=== PATIENT | male | born 1965 | race Caucasian/White ===

== ENCOUNTER 2021-12-12 09:57 | Emergency (ER) | payer OTHER ==
[~2021-12-12] VITALS: Ht 182.9 cm; Wt 95.3 kg
[2021-12-12 10:01] VITALS: BP_SYST 166
--- NOTE | 2021-12-12 10:25 | NUR ---
Pt coming from home ambulatory with steady gait. Pt c/o upper back pain that radiates to chest that started an hour ago. Rates pain 6/10 intermittent. No sob and denies n/v. Connected pt to manpower development manager and VSS. A&Ox4. Skin intact. Pupils PERRLA. Cranial nerves intact. Bed in lowest position.
--- NOTE | 2021-12-12 10:28 | NUR ---
ER at bedside examining patient.
[2021-12-12] MEDS ORDERED: IBUPROFEN 600 MG TABLET PO ONE (10:30)
--- NOTE | 2021-12-12 10:30 | NUR ---
EKG performed at by Tania PARNELL. Physician given copy of EKG for review.
--- NOTE | 2021-12-12 10:33 | NUR ---
X-Ray being done at bedside
--- NOTE | 2021-12-12 10:35 | NUR ---
senior process control tech at bedside.
[2021-12-12 10:41] LABS: BASOPHILS % (AUTO) 0.6 % (0.0-2.0); EOSINOPHILS # (AUTO) 0.2 K/uL (0.0-0.4); EOSINOPHILS % (AUTO) 4.8 % (0.0-4.0); HEMATOCRIT 44.5 % (36-54); HEMOGLOBIN 15.6 g/dL (14.0-18.0); LYMPHOCYTES # (AUTO) 1.3 K/uL (1.0-5.5); LYMPHOCYTES % (AUTO) 26.9 % (20.5-51.5); MEAN CORPUSCULAR HEMOGLOBIN 30 pg (27-31); MEAN CORPUSCULAR HGB CONC 35 % (32-36); MEAN CORPUSCULAR VOLUME 85 fL (79.0-98.0); MONOCYTES # (AUTO) 0.5 K/uL (0.0-1.0); NEUTROPHILS # (AUTO) 2.6 K/uL (1.8-7.7); NEUTROPHILS % (AUTO) 56.7 % (40.0-70.0); PLATELET COUNT (AUTO) 150 K/uL (130-430); RED BLOOD CELL COUNT(AUTO) 5.26 MIL/uL (4.2-6.2); RED CELL DISTRIBUTION WIDTH 13.4 % (9.0-15.0); WHITE BLOOD COUNT (AUTO) 4.7 K/uL (4.8-10.8)
[2021-12-12] MEDS ORDERED: LORazepam 1 MG TABLET PO ONE (10:45)
[2021-12-12 10:46] LABS: ANION GAP 6 (5-15); CALCIUM 8.4 mg/dL (8.4-11.0); CHLORIDE 106 mmol/L (98-107); CREATININE 1.16 mg/dL (0.55-1.30); GLUCOSE 121 mg/dL (70-99); POTASSIUM 3.8 mmol/L (3.5-5.1); SODIUM SERUM 139 mmol/L (136-145); UREA NITROGEN, BLOOD 17 mg/dL (8-21)
[2021-12-12 10:48] LABS: GFR AFRICAN AMERICAN 84 mL/min (>90)
[2021-12-12 10:55] LABS: ALANINE AMINOTRANSFERASE 36 U/L (12-78); ALBUMIN 3.6 g/dL (3.4-4.8); ASPARTATE AMINOTRANSFERASE 23 U/L (10-37); TOTAL BILIRUBIN 0.4 mg/dL (0.0-1.0)
[2021-12-12] MEDS ORDERED: TRAM50TA PO (11:37)
[2021-12-12 11:53] VITALS: BP_SYST 145
--- NOTE | 2021-12-12 11:54 | NUR ---
Patient given written and verbal discharge instructions and verbalizes understanding. ER MD discussed with patient the results and treatment provided. Patient in stable condition. ID arm band removed. Rx of Tramadol given. Patient educated on pain management and to follow up with PMD. Pain Scale 0/10. Opportunity for questions provided and answered. Medication side effect fact sheet provided.
== END 2021-12-12 11:53 | disposition home or self-care (01) ==
LOC: SED 09:57
DX: S39.012A Strain of muscle, fascia and tendon of lower back, initial encounter (principal); R07.9 Chest pain, unspecified; F41.9 Anxiety disorder, unspecified; X58.XXXA Exposure to other specified factors, initial encounter; Y93.89 Activity, other specified; Y92.89 Other specified places as the place of occurrence of the external cause; Y99.8 Other external cause status
CPT/HCPCS: 36415; 71045; 80053; 83880; 84484; 85025; 93005; 99285

== ENCOUNTER 2022-03-02 13:04 | Emergency (ER) | payer OTHER ==
[~2022-03-02] VITALS: Ht 182.9 cm; Wt 95.3 kg
[~2022-03-02 13:04] MED LIST: TRAM50TA PO
[2022-03-02 13:31] VITALS: BP_SYST 163
--- NOTE | 2022-03-02 13:39 | NUR ---
DR. BROWN AT BEDSIDE TO ASSESS PT.
[2022-03-02] MEDS ORDERED: ONDANSETRON HCL 4 MG/2 ML VIAL IVP ONE (13:45)
[2022-03-02] MEDS ORDERED: MORPHINE 4 MG INJ. 4 MG/ML VIAL IVP ONE ×2 (13:45→14:45)
[2022-03-02 14:04] LABS: BASOPHILS % (AUTO) 0.4 % (0.0-2.0); EOSINOPHILS # (AUTO) 0.2 K/uL (0.0-0.4); EOSINOPHILS % (AUTO) 4.5 % (0.0-4.0); HEMATOCRIT 39.9 % (36-54); HEMOGLOBIN 13.9 g/dL (14.0-18.0); LYMPHOCYTES # (AUTO) 1.3 K/uL (1.0-5.5); LYMPHOCYTES % (AUTO) 25.9 % (20.5-51.5); MEAN CORPUSCULAR HEMOGLOBIN 30 pg (27-31); MEAN CORPUSCULAR HGB CONC 35 % (32-36); MEAN CORPUSCULAR VOLUME 85 fL (79.0-98.0); MONOCYTES # (AUTO) 0.5 K/uL (0.0-1.0); MONOCYTES % (AUTO) 10.6 % (1.7-9.3); NEUTROPHILS # (AUTO) 2.9 K/uL (1.8-7.7); NEUTROPHILS % (AUTO) 58.6 % (40.0-70.0); PLATELET COUNT (AUTO) 154 K/uL (130-430); RED BLOOD CELL COUNT(AUTO) 4.68 MIL/uL (4.2-6.2); RED CELL DISTRIBUTION WIDTH 14.1 % (9.0-15.0); WHITE BLOOD COUNT (AUTO) 4.9 K/uL (4.8-10.8)
--- NOTE | 2022-03-02 14:10 | NUR ---
PATIENT IV STARTED, PAIN IN LOWER RIGHT QUADRANT RADIATING TO BACK, SMALL AMOUNT OF BLOOD IN STOOL A FEW DAYS AGO BUT WENT AWAY. PATIENT WILL BE MEDICATED AT THIS TIME.
[2022-03-02 14:16] LABS: CALCIUM 8.7 mg/dL (8.4-11.0); CREATININE 1.28 mg/dL (0.55-1.30); POTASSIUM 4.5 mmol/L (3.5-5.1)
[2022-03-02 14:23] LABS: ALBUMIN 3.8 g/dL (3.4-4.8); TOTAL BILIRUBIN 0.3 mg/dL (0.0-1.0)
[2022-03-02 14:33] LABS: BILIRUBIN,URINE NEGATIVE (NEGATIVE); BLOOD, URINE NEGATIVE (NEGATIVE); CLARITY/URINE CLEAR (CLEAR); COLOR,URINE YELLOW (YELLOW); GLUCOSE,URINE NEGATIVE (NEGATIVE); KETONES,URINE NEGATIVE (NEGATIVE); LEUKOCYTE ESTERASE ,URINE NEGATIVE (NEGATIVE); NITRITE, URINE NEGATIVE (NEGATIVE); PH,URINE 5.5 (5.0-8.0); PROTEIN URINE NEGATIVE (NEGATIVE); UROBILINOGEN,URINE 0.2 (0.2-1.0)
[2022-03-02 14:49] VITALS: BP_SYST 167
[2022-03-02] MEDS ORDERED: ANURH RC (15:52)
== END 2022-03-02 16:09 | disposition home or self-care (01) ==
LOC: SED 13:04
DX: R10.32 Left lower quadrant pain (principal); K62.89 Other specified diseases of anus and rectum; I10 Essential (primary) hypertension; Z88.0 Allergy status to penicillin; Z88.6 Allergy status to analgesic agent; Z79.899 Other long term (current) drug therapy
CPT/HCPCS: 99285; 74177; 96374; 96375; 80053; 83690; 85025; 36415; 76376; 96376; 81003; J2405; J2270; Q9967

== ENCOUNTER 2023-02-03 05:14 | Inpatient (IN) | payer OTHER ==
[~2023-02-03] VITALS: Ht 182.9 cm; Wt 88.9 kg
[~2023-02-03 05:14] MED LIST changes: +ANURH RC
[2023-02-03 05:35] VITALS: BP_SYST 128; PULSE 109; RESP 18; TEMP 97.9; O2SAT 98
[2023-02-03] MEDS ORDERED: NACL 0.9% 1,000 ML IV ONE (05:45)
[2023-02-03] MEDS ORDERED: ONDANSETRON HCL 4 MG/2 ML VIAL IVP ONE (05:45)
[2023-02-03] MEDS ORDERED: MORPHINE 2 MG/ML INJ. SYRINGE IVP ONE (05:45)
[2023-02-03 06:52] LABS: BASOPHILS # (AUTO) 0.1 K/uL (0.0-0.2); BASOPHILS % (AUTO) 1.2 % (0.0-2.0); EOSINOPHILS # (AUTO) 0.2 K/uL (0.0-0.4); EOSINOPHILS % (AUTO) 2.1 % (0.0-4.0); HEMATOCRIT 56.6 % (36-54); HEMOGLOBIN 18.8 g/dL (14.0-18.0); LYMPHOCYTES # (AUTO) 1.3 K/uL (1.0-5.5); MEAN CORPUSCULAR HEMOGLOBIN 30 pg (27-31); MEAN CORPUSCULAR HGB CONC 33 % (32-36); MEAN CORPUSCULAR VOLUME 89 fL (79.0-98.0); MONOCYTES # (AUTO) 1.3 K/uL (0.0-1.0); MONOCYTES % (AUTO) 12.2 % (1.7-9.3); NEUTROPHILS # (AUTO) 7.9 K/uL (1.8-7.7); NEUTROPHILS % (AUTO) 72.5 % (40.0-70.0); PLATELET COUNT (AUTO) 262 K/uL (130-430); RED BLOOD CELL COUNT(AUTO) 6.37 MIL/uL (4.2-6.2); RED CELL DISTRIBUTION WIDTH 13.6 % (9.0-15.0); WHITE BLOOD COUNT (AUTO) 10.9 K/uL (4.8-10.8)
[2023-02-03 07:19] LABS: CALCIUM 9.1 mg/dL (8.4-11.0); CREATININE 2.82 mg/dL (0.55-1.30); POTASSIUM 4.1 mmol/L (3.5-5.1)
[2023-02-03 07:24] LABS: ALBUMIN 4.9 g/dL (3.4-4.8); TOTAL BILIRUBIN 0.7 mg/dL (0.0-1.0); TOTAL PROTEIN, SERUM 9.4 g/dL (6.4-8.3)
[2023-02-03] MEDS ORDERED: HYDROcodone/ACETAMIN 7.5-325 MG TAB PO ONE (09:15)
[2023-02-03] MEDS ORDERED: ONDANSETRON 4 MG ODT TAB PO ONE (09:15)
[2023-02-03 09:36] LABS: BLOOD, URINE NEGATIVE (NEGATIVE); GLUCOSE,URINE NEGATIVE (NEGATIVE); KETONES,URINE 1+ (NEGATIVE); LEUKOCYTE ESTERASE ,URINE NEGATIVE (NEGATIVE); NITRITE, URINE NEGATIVE (NEGATIVE); PROTEIN URINE 2+ (NEGATIVE); UROBILINOGEN,URINE 0.2 (0.2-1.0)
[2023-02-03] MEDS: NACL 0.9% 1,000 ML IV SCH ×2 (09:40→23:09)
[2023-02-03 09:42] LABS: CLARITY/URINE HAZY (CLEAR); COLOR,URINE YELLOW (YELLOW)
[2023-02-03 09:50] LABS: BILIRUBIN,URINE NEGATIVE (NEGATIVE)
[2023-02-03 10:03] LABS: BACTERIA,URINE FEW /HPF (None Seen); RBC,URINE NONE SEEN /HPF (0-3); WBC,URINE 0-3 /HPF (0-3)
[2023-02-03 10:04] LABS: MUCUS,URINE 2+ /LPF (None Seen)
[2023-02-03] MEDS ORDERED: PANTOPRAZOLE SODIUM 40 MG/VIAL (PROTONIX) IVP ONE (15:30)
[2023-02-03] MEDS: ONDANSETRON HCL 4 MG/2 ML VIAL IVP PRN ×2 (15:32→23:07)
[2023-02-03] MEDS ORDERED: NALOXONE HCL 0.4 MG/ML AMP (NARCAN) IVP PRN ×2 (17:00)
[2023-02-03] MEDS ORDERED: HYDROcodone/ACETAMIN 5-325 MG TAB (NORCO/ VICODIN) PO PRN (17:00)
[2023-02-03] MEDS ORDERED: ACETAMINOPHEN 325 MG TABLET PO PRN (17:00)
[2023-02-03] MEDS: HYDROcodone/ACETAMIN 10-325 MG TAB PO PRN ×2 (17:12→23:09)
[2023-02-03 21:00] VITALS: BP_SYST 129; PULSE 73; RESP 16; TEMP 98.2; O2SAT 98
[2023-02-04] VITALS: BP_SYST 126; PULSE 74; RESP 16; TEMP 98.4; O2SAT 98
[2023-02-04] MEDS: NACL 0.9% 1,000 ML IV SCH ×2 (05:30→17:08)
[2023-02-04] MEDS: ONDANSETRON HCL 4 MG/2 ML VIAL IVP PRN (05:51)
[2023-02-04] MEDS: HYDROcodone/ACETAMIN 10-325 MG TAB PO PRN ×3 (05:53→18:21)
[2023-02-04 08:03] LABS: BASOPHILS % (AUTO) 0.4 % (0.0-2.0); EOSINOPHILS # (AUTO) 0.3 K/uL (0.0-0.4); EOSINOPHILS % (AUTO) 5.3 % (0.0-4.0); HEMATOCRIT 46.5 % (36-54); HEMOGLOBIN 15.5 g/dL (14.0-18.0); LYMPHOCYTES # (AUTO) 0.9 K/uL (1.0-5.5); LYMPHOCYTES % (AUTO) 14.9 % (20.5-51.5); MEAN CORPUSCULAR HEMOGLOBIN 30 pg (27-31); MEAN CORPUSCULAR HGB CONC 33 % (32-36); MEAN CORPUSCULAR VOLUME 89 fL (79.0-98.0); MONOCYTES # (AUTO) 1.1 K/uL (0.0-1.0); MONOCYTES % (AUTO) 18.6 % (1.7-9.3); NEUTROPHILS # (AUTO) 3.6 K/uL (1.8-7.7); NEUTROPHILS % (AUTO) 60.8 % (40.0-70.0); PLATELET COUNT (AUTO) 169 K/uL (130-430); RED BLOOD CELL COUNT(AUTO) 5.21 MIL/uL (4.2-6.2); RED CELL DISTRIBUTION WIDTH 13.6 % (9.0-15.0)
[2023-02-04 08:20] LABS: ALBUMIN 3.3 g/dL (3.4-4.8); CALCIUM 7.9 mg/dL (8.4-11.0); CREATININE 1.42 mg/dL (0.55-1.30); POTASSIUM 4.5 mmol/L (3.5-5.1); TOTAL BILIRUBIN 0.6 mg/dL (0.0-1.0); TOTAL PROTEIN, SERUM 6.6 g/dL (6.4-8.3)
[2023-02-04 08:26] VITALS: BP_SYST 141; PULSE 76; RESP 18; TEMP 98.1; O2SAT 98
[2023-02-04] MEDS ORDERED: PANTOPRAZOLE SODIUM 40 MG/VIAL (PROTONIX) IVP SCH (09:00)
[2023-02-04 12:22] VITALS: BP_SYST 146; PULSE 79; RESP 20; TEMP 97.5; O2SAT 98
[2023-02-04 17:04] VITALS: BP_SYST 152; PULSE 78; RESP 18; TEMP 97.5; O2SAT 98
[2023-02-04 19:45] VITALS: O2SAT 98
[2023-02-04 20:00] VITALS: BP_SYST 126; PULSE 66; RESP 18; TEMP 98.1; O2SAT 98
[2023-02-05] VITALS: BP_SYST 131; PULSE 59; RESP 16; TEMP 98.2; O2SAT 98
[2023-02-05] MEDS: PANTOPRAZOLE SODIUM 40 MG/VIAL (PROTONIX) IVP SCH ×2 (00:12→10:32)
[2023-02-05] MEDS: NACL 0.9% 1,000 ML IV SCH ×2 (01:35→10:35)
[2023-02-05 05:09] LABS: BASOPHILS % (AUTO) 0.6 % (0.0-2.0); EOSINOPHILS # (AUTO) 0.3 K/uL (0.0-0.4); EOSINOPHILS % (AUTO) 5.3 % (0.0-4.0); HEMATOCRIT 42.2 % (36-54); HEMOGLOBIN 14.4 g/dL (14.0-18.0); LYMPHOCYTES % (AUTO) 18.3 % (20.5-51.5); MEAN CORPUSCULAR HEMOGLOBIN 30 pg (27-31); MEAN CORPUSCULAR HGB CONC 34 % (32-36); MEAN CORPUSCULAR VOLUME 88 fL (79.0-98.0); MONOCYTES # (AUTO) 0.9 K/uL (0.0-1.0); MONOCYTES % (AUTO) 16.1 % (1.7-9.3); NEUTROPHILS # (AUTO) 3.3 K/uL (1.8-7.7); NEUTROPHILS % (AUTO) 59.7 % (40.0-70.0); PLATELET COUNT (AUTO) 156 K/uL (130-430); RED BLOOD CELL COUNT(AUTO) 4.82 MIL/uL (4.2-6.2); RED CELL DISTRIBUTION WIDTH 13.7 % (9.0-15.0); WHITE BLOOD COUNT (AUTO) 5.5 K/uL (4.8-10.8)
[2023-02-05 05:23] LABS: CALCIUM 7.9 mg/dL (8.4-11.0); CREATININE 1.27 mg/dL (0.55-1.30); PHOSPHORUS 2.6 mg/dL (2.7-4.5); POTASSIUM 4.9 mmol/L (3.5-5.1)
[2023-02-05] MEDS: HYDROcodone/ACETAMIN 10-325 MG TAB PO PRN ×2 (06:14→10:33)
[2023-02-05 08:00] VITALS: BP_SYST 143; PULSE 68; RESP 18; TEMP 98.4; O2SAT 99
[2023-02-05 12:00] VITALS: BP_SYST 133; PULSE 59; RESP 18; TEMP 98.6; O2SAT 98
[2023-02-05] MEDS ORDERED: LACT1CAP69 PO (13:57)
[2023-02-05 15:30] VITALS: BP_SYST 143; RESP 59; TEMP 98.2; O2SAT 99
[2023-02-05 16:00] VITALS: BP_SYST 128; PULSE 64; RESP 20; TEMP 98.8; O2SAT 96
== END 2023-02-05 16:00 | disposition home or self-care (01) | DRG 392 ==
LOC: SED 05:14 → STU 09:19
PROVIDERS: ADMIT Family Medicine; ATTEND Preventive Medicine Preventive Medicine/Occupational Environmental Medicine
DX: A09 Infectious gastroenteritis and colitis, unspecified (principal); N17.9 Acute kidney failure, unspecified; I10 Essential (primary) hypertension; E83.52 Hypercalcemia; E83.39 Other disorders of phosphorus metabolism; E88.09 Other disorders of plasma-protein metabolism, not elsewhere classified; Z88.0 Allergy status to penicillin; Z88.8 Allergy status to other drugs, medicaments and biological substances; Z79.899 Other long term (current) drug therapy; Z90.49 Acquired absence of other specified parts of digestive tract
CPT/HCPCS: 36415; 76376; 80048; 80053; 81000; 82150; 83605; 83690; 83735; 84100; 85025; 87045-TC; 87046; 87177; 87230-TC; 89055; 96361; 96374; 96375; 99285; C9113; G0378; J2270; J2405; Q0162